=== PATIENT | male | born 1960 ===

== ENCOUNTER 2017-03-30 06:49 | Day surgery (SDC) | payer MEDICARE ==
[2016-06-03 09:04] VITALS: PULSE 84
[2017-03-30 07:18] VITALS: BMI 28.8
[2017-03-30 07:57] LABS: INR 1.2
[2017-03-30] MEDS ORDERED: Lactated Ringer's 500 ML IV ONE (08:39)
[2017-03-30] MEDS ORDERED: Propofol 10 mg/ml Inj (20 ML) ONE (08:40)
--- NOTE | 2017-03-30 08:40 | CP.SDSHP ---
Same Day Surgery H & P - History Proposed Procedure: colonoscopy Pre-Op Diagnosis: h/o rectal cancer (2016) - Previous Medical/Surgical History Cardiac: Hypertension, ASHD/CAD, Valvular Heart Disease, Hx of CHF, Other (Afib , hyperlipidemia) Neuro: Backaches Misc: Other (L/S Disc disease) Previous Surgical History: CABGx4. MV Repair (patch) 2010. Lap Cholecystectomy. Low Anterior resection of rectal mass - Allergies Allergies: Allergies No Known Allergies Allergy (Verified 05/31/16 21:54) - Physical Exam Vital Signs: Vital Signs 03/30/17 07:19 Temperature 97 F L Pulse Rate 80 Respiratory 20 Rate Blood Pressure 129/70 O2 Sat by Pulse 98 Oximetry Mental Status: Alert & Oriented x3 Neuro: WNL Heart: WNL Lungs: WNL GI: Other (midline scar well healed) - Impression Impression: h/o rectal cancer s/p resection Pt. Evaluated Today:Candidate for Anesthesia & Procedure: Yes - Date & Time Date: 03/30/17 Time: 08:41 Short Stay Discharge - Short Stay Discharge Admitting Diagnosis/Reason for Visit: [facility] [id number] H/O RECTAL CANCER Disposition: HOME/ ROUTINE
[2017-03-30 09:27] VITALS: TEMP 97.5; O2SAT 99
[2017-03-30 11:06] VITALS: BP 118/83; PULSE 77; RESP 16
== END 2017-03-30 09:50 | disposition home or self-care (01) ==
LOC: C.ENDO 06:49
PROVIDERS: ATTEND Internal Medicine Gastroenterology
DX: K55.20 Angiodysplasia of colon without hemorrhage (principal); K64.1 Second degree hemorrhoids; Z85.048 Personal history of other malignant neoplasm of rectum, rectosigmoid junction, and anus
CPT/HCPCS: 36415; 45380; 82948; 85610; 85730; 88305; J2704; J7120

== ENCOUNTER 2017-07-30 06:23 | Day surgery (SDC) | payer MEDICARE ==
[2017-06-21 19:20] VITALS: PULSE 84
[2017-07-23 10:18] VITALS: BMI 26.6
[2017-07-30 07:26] LABS: INR 1.4; PROTHROMBIN TIME 15.3 SECONDS (9.7-12.2)
[2017-07-30] MEDS ORDERED: ceFAZolin 1 gm in NS 2 GM/200 ML BAG IVPB ONE (07:32)
[2017-07-30] MEDS ORDERED: Bupivacaine HCl 0.25% PF (30 ml) Inj ONE (07:32)
[2017-07-30] MEDS ORDERED: Lidocaine/Epinephrine 1% 1:100000 10 ML IJ ONE (08:37)
[2017-07-30] MEDS ORDERED: Midazolam 2 MG/2 ML VIAL ONE (08:56)
[2017-07-30] MEDS ORDERED: Propofol 10 mg/ml Inj (20 ML) ONE (08:56)
--- NOTE | 2017-07-30 09:37 | PCM.SURG1 ---
Surgeon's Initial Post Op Note - Surgeon's Notes Surgeon: Dr. Watson Assistant Mechanic: Leslie Dennis, PGY-1 Pre-Operative Diagnosis: Colon cancer s/p resection and chemotherapy Operative Findings: See op report Post-Operative Diagnosis: Colon cancer s/p resection and chemotherapy Operation Performed: RIJ Portacath removal, capsulectomy, 2 layer closure Specimen/Specimens Removed: Portacath Estimated Blood Loss: EBL {In ML}: 5 Blood Products Given: N/A Drains Used: No Drains Post-Op Condition: Good Date of Surgery/Procedure: 07/30/17 Time of Surgery/Procedure: 09:37
[2017-07-30 09:57] VITALS: O2SAT 100
[2017-07-30] MEDS ORDERED: Oxycodone/Acetaminophen 5/325 mg Tab PO PRN (10:03)
[2017-07-30 10:25] VITALS: RESP 15
[2017-07-30 10:59] VITALS: BP 107/70; PULSE 65; TEMP 97.3
--- NOTE | 2017-07-30 11:57 | OP ---
PROCEDURE DATE: 07/30/2017. PREOPERATIVE DIAGNOSIS: Colon cancer, status post colon resection, status post chemotherapy. POSTOPERATIVE DIAGNOSIS: Colon cancer, status post colon resection, status post chemotherapy. PROCEDURES DONE: 1. Port-A-Cath removal. 2. Capsulectomy and layered closure of the wound approximately 4 x 2 x 3 cm size. SURGEON: Omkar Watson MD. TYPE OF ANESTHESIA: Local anesthesia plus sedation. ESTIMATED BLOOD LOSS: Around 5 mL. DRAINS: None. PATHOLOGY: Port-A-Cath with the catheter and capsule were sent to the Pathology. COMPLICATIONS: None. INTRAOPERATIVE FINDINGS: The patient had a double lumen catheter of the right IJ and a very thickened capsule. DESCRIPTION OF PROCEDURE: On intraoperative steps, this is a 57-year-old male who was diagnosed with colon cancer and the patient underwent colon resection and status post chemotherapy, and the patient was seen in my office for the Port-A-Cath removal. The patient was consented and brought to the OR, placed supine on the operating table. After induction of the sedation, the right chest and upper neck were prepped and draped in the usual sterile fashion. The local anesthesia was injected. A transverse incision was made on previous incision. After incising the skin, subcutaneous tissue and capsule around the Port-A-Cath, the Port-A-Cath was completely excised and a [id number] suture was placed at the site of the catheter and the catheter with the Port-A-Cath was sent off the table for the pathology. The patient had a thick capsule and the capsule was resected and the capsule was sent off the table for the pathology and the wound was irrigated. Hemostasis was achieved and now the deep cavity was closed with 2-0 Vicryl multiple sutures, deeper subcu with 3-0 Vicryl, superficial subcu with 3-0 Vicryl and the skin with 4-0 Monocryl and dry sterile dressing was applied. The patient tolerated the procedure well. Count of the instrument and gauze was correct. There was no apparent complication. The patient was reversed from sedation and sent to the Postanesthesia Care Unit in stable condition. Omkar Watson MD [facility] # [id number]
== END 2017-07-30 11:00 | disposition home or self-care (01) ==
LOC: C.SDS 06:23
PROVIDERS: ATTEND Surgery Surgical Critical Care
DX: Z45.2 Encounter for adjustment and management of vascular access device (principal); C18.9 Malignant neoplasm of colon, unspecified; Z92.21 Personal history of antineoplastic chemotherapy; Z90.49 Acquired absence of other specified parts of digestive tract; E11.9 Type 2 diabetes mellitus without complications
CPT/HCPCS: 36415; 36590; 82948; 85610; 85730; 88300; 88302; J0690; J2250; J2704; J3010